=== PATIENT | female | born 1975 | race Caucasian/White ===

== ENCOUNTER 2019-07-30 18:39 | Emergency (ER) | payer OTHER ==
[~2019-07-30] VITALS: Ht 157.5 cm; Wt 59.4 kg
--- NOTE | 2019-07-30 18:39 | NUR ---
COVID SCREENING PERFORMED BY MYSELF WITH PPE IN PLACE, GOWN, MASK, GOGGLES AND GLOVE WERE ON DURING INTERVIEW. PT C/C NASAL CONGESTION WITH SOB X3 DAYS. DENIES RECENT TRAVEL, DENIES ANY FEVER OR CHILLS, DENIES BEING IN CONTACT WITH ANYONE WITH KNOWN POSITIVE COVID-19. 100% ON ROOM. PT TAKEN AROUND THRU AMBULANCE ENTRANCE AND PLACED IN BED 3 IN COVID ISOLATION PRECAUTIONS. REPORT GIVEN TO LANCE SABILLON.
[2019-07-30 18:43] VITALS: BP 166/94
--- NOTE | 2019-07-30 19:12 | NUR ---
RECEIVED REPORT FROM LANCE SABILLON FOR CONTINUITY OF CARE.
--- NOTE | 2019-07-30 19:17 | NUR ---
44 Y/O FEMALE PRESENTS WITH SINUS CONGESTION FOR 2-3 DAYS CAUSING SOB. PT DENIES COUGH, CHEST PAIN, FEVER, CHILLS. PT STATES SHE HAS INTERMITTENT EPISODES OF SOB WHEN UNABLE TO BREATH THROUGH HER NOSE. RESP EVEN AND UNLABORED. LUNG SOUNDS CLEAR IN BILAT LOBES. CAP REFILL <3. PMH: SEASONAL ALLERGIES NKA
[2019-07-30 19:46] VITALS: BP 154/86
--- NOTE | 2019-07-30 19:47 | NUR ---
Patient discharged with v/s stable. Written and verbal after care instructions given and explained. Patient alert, oriented and verbalized understanding of instructions. Ambulatory with steady gait. All questions addressed prior to discharge. ID band removed. Patient advised to follow up with PMD. Rx of FLONASE AND LORATADINE given. Patient educated on indication of medication including possible reaction and side effects. Opportunity to ask questions provided and answered.
== END 2019-07-30 19:46 | disposition home or self-care (01) ==
LOC: MED 18:39
DX: J30.9 Allergic rhinitis, unspecified (principal); R06.02 Shortness of breath; R03.0 Elevated blood-pressure reading, without diagnosis of hypertension
CPT/HCPCS: 71045; 93005; 99283; Q0092; 99284